=== PATIENT | female | born 1955 | race Caucasian/White ===

== ENCOUNTER → 2018-06-08 | Day surgery (SDC) | payer OTHER ==
[~2018-06-08] VITALS: Ht 152.4 cm; Wt 87.5 kg
--- NOTE | 2018-06-08 09:40 | Operative Report ---
Operative/Inv Procedure Report Surgery Date: 06/08/18 Name of Procedure: urethral sling, cystoscopy Pre-Operative Diagnosis: stress incontinence Post-Operative Diagnosis: same Estimated Blood Loss: scant (100cc) Surgeon/Facilities Plant Engineer: Vanesa Pham MD Anesthesia: laryngeal mask airway Implants: vaginal mesh Complications: none Condition: stable Operative Indication: stress incontinence Operative/Procedure Note Note: 62yo female with urinary incontinence that she describes with stress maneuvers eg coughing, sneezing, etc. She has no UUI. She does not experience the SANDOVAL daily but certainly weekly and worse with illness. She also describes frequency <q1-2hrs and wakes 1-2x per night. She has never tried any OAB meds. She has voiding issues of variable stream, need to strain at times and feeling like she does not empty. She has no hx of kidney stones, hematuria or chronic UTIS. SHe has no smoking hx. she was given the risks benefits and alternatives of the urethral sling for stress urinary incontinence issue. This was done the presence of her . All questions were answered regarding vaginal mesh. The same risks benefits and alternatives were again reviewed in the holding area prior to signing the consent form. The possible need for a urethral catheter postop was also discussed which is less than 10% of patients. Patient was taken to the operating room placed on the operating table in the supine position. Timeout was performed. IV antibiotics were infused. Gen. anesthesia with LMA was begun. She was placed in the dorsolithotomy position and shaved and the genitalia region. Booth catheter was placed in the bladder was emptied. This clamped the patient placed on the patient's abdomen. Since retractor retractor was placed to allow for visualization. 1% lidocaine with epinephrine was infiltrated into the anterior vaginal wall beneath the urethra. Vaginal flaps are created taking care not to injure the urethra. The [employer] Coloplast sling kit was then opened and the trochars provided was used to place the mini sling first in the left obturator space and the fascia followed by the right side. The sling was tightened with a DeBakey between the urethra and the sling. It was in a horizontal flat orientation and was tightened for tension- free positioning. There area was post copiously irrigated with bacitracin irrigation. Sling was seen to be in good position. There is no mesh in the vaginal fornices. The tightening suture was cut. The incision was closed with a 3-0 Vicryl and locking every third suture. She needle count were correct the end of the case. 2 inch vaginal packing impregnated with bacitracin was placed in the vaginal vault. Patient was cleaned the Betadine solution was transferred to the recovery room table condition. Findings: No mesh in the bladder, urethra, or vaginal fornices.
== END ==
LOC: STS 02:20
DX: N39.3 Stress incontinence (female) (male) (principal); R35.0 Frequency of micturition; R39.16 Straining to void; R39.14 Feeling of incomplete bladder emptying; N32.81 Overactive bladder; I10 Essential (primary) hypertension; E11.9 Type 2 diabetes mellitus without complications; Z79.4 Long term (current) use of insulin
CPT/HCPCS: C1771; J0690; J2250